=== PATIENT | female | born 1985 | race Caucasian/White ===

== ENCOUNTER → 2016-11-21 | Outpatient (CLI) | payer BC, OTHER ==
--- NOTE | 2016-11-21 10:14 | USB ---
Reason for exam: clinical finding. History: Family history of breast cancer in maternal aunt at age 40 and breast cancer in maternal grandmother at age 50. Indicated problem(s): pain in the left breast. Physical Findings: Nurse Summary: Left breast pain 6 months (nurse kp). US Breast LT Left breast ultrasound includes all four quadrants, the retroareolar region and axilla. Finding demonstrate no cystic or solid lesion seen. These results were verbally communicated with the patient and result sheet given to the patient on 11/21/16. ASSESSMENT: Negative, BI-RAD 1 RECOMMENDATION: Routine screening mammogram of both breasts at age 40. Manage patient on a clinical basis.
== END | disposition home or self-care (01) ==
LOC: RADUSWWP 08:33
PROVIDERS: ATTEND Obstetrics & Gynecology
DX: N64.4 Mastodynia (principal)

== ENCOUNTER 2016-12-30 14:43 | Emergency (ER) | payer BC, OTHER ==
[2016-12-30] MEDS ORDERED: IPRATROPIUM-ALBUTEROL 3 ML NEB INHALATION STA (16:38)
[2016-12-30 17:11] LABS: Basophils % (A) 1 %; CH 30.3; CHCM 33.5; Eosinophils # (A) 0.2 k/uL (0-0.7); Eosinophils % (A) 3 %; HCT 39.6 % (34.0-46.0); HDW 2.32; HGB 13.8 gm/dL (11.4-16.0); Luc # (Auto) 0.15; Luc % (Auto) 3; Lymphocytes # (A) 2.7 k/uL (1.0-4.8); Lymphocytes % (A) 46 %; MCH 31.6 pg (25.0-35.0); MCHC 34.8 g/dL (31.0-37.0); MCV 90.8 fL (80.0-100.0); Mean Platelet Volume 7.6; Monocytes # (A) 0.3 k/uL (0-1.0); Monocytes % (A) 5 %; Neutrophils # (A) 2.5 k/uL (1.3-7.7); Neutrophils % (A) 43 %; RBC 4.36 m/uL (3.80-5.40); RDW 12.9 % (11.5-15.5); WBC 5.8 k/uL (3.8-10.6); WBC (Perox) 5.91
[2016-12-30 17:19] LABS: Appearance,Urine Cloudy (Clear); Bacteria,Urine Rare /hpf; Bilirubin,Urine Negative (Negative); Glucose,Urine (UA) Negative (Negative); Ketones,Urine Negative (Negative); Leukocyte Esterase,Urine Small (Negative); Mucus,Urine Rare /hpf; Nitrite,Urine Negative (Negative); Particle Count 2583; Protein,Urine Trace (Negative); RBC,Urine 1 /hpf (0-5); Specific Gravity,Urine 1.018 (1.001-1.035); Squamous Epithelial Cell,Urine 4 /hpf (0-4); UA Billing (MACRO vs. MICRO) MICRO; WBC,Urine 9 /hpf (0-5)
[2016-12-30 17:20] VITALS: RESP 16
[2016-12-30 17:22] LABS: Anion Gap 8 mmol/L; Blood Urea Nitrogen 11 mg/dL (7-17); Carbon Dioxide 24 mmol/L (22-30); Chloride 107 mmol/L (98-107); Glucose 95 mg/dL (74-99); Non-African American GFR(MDRD) >60 (>60 ml/min/1.73 sqM); Potassium 4.4 mmol/L (3.5-5.1); Sodium 139 mmol/L (137-145)
--- NOTE | 2016-12-30 18:04 | ED ---
General Adult HPI - General Chief complaint: Shortness of Breath Stated complaint: SOB/Allergies Time Seen by Provider: 12/30/16 16:21 Source: patient Mode of arrival: ambulatory Limitations: no limitations - History of Present Illness Initial comments: Alexa is a 31-year-old female with past medical history of asthma which is usually controlled with her MDI inhaler. The patient reports she has never had to come to the emergency department for been hospitalized for her asthma. She reports that over the past 2 months with the warm weather she has been using her rescue inhaler more frequently. She reports that over the weekend she has been using her inhaler 6-7 times a day with minimal relief in her shortness of breath and wheezing. Patient reports that historically she has always had worsening symptoms and hot humid weather, however she has never had symptoms this severe. Patient reports over the weekend her asthma was nearly constant, it improved with slow breathing exercises and holding her hands over head. However she reports that despite using her inhaler she had minimal improvement. She reports she feels as though she has wheezing, she denies any productive cough, fevers, chills, nausea or vomiting. She reports she has been able to eat her normal diet despite her wheezing. She denies any chest pain or cardiac history. She denies any smoking, she was a former tobacco smoker but quit nearly 3 years ago. She is not currently on oral contraceptive pills, has no history of DVT or PE and no family history of DVT or PE. - Related Data Home Medications Medication Instructions Recorded Confirmed Albuterol Inhaler [Ventolin Hfa 1 - 2 puff INHALATION RT-Q6H PRN 04/16/16 Inhaler] Aviane 1 tab PO DAILY 12/30/16 12/30/16 Multivitamins, Thera [Multivitamin 1 tab PO DAILY 12/30/16 12/30/16 (formulary)] Previous Rx's Medication Instructions Recorded Loratadine [Alavert] 10 mg PO DAILY #30 tab.rapdis 12/30/16 predniSONE 10 mg PO DIRECTED #18 tab 12/30/16 Allergies Allergy/AdvReac Type Severity Reaction Status Date / Time No Known Allergies Allergy Verified 12/30/16 16:13 Review of Systems ROS Statement: Those systems with pertinent positive or pertinent negative responses have been documented in the HPI. ROS Other: All systems not noted in ROS Statement are negative. Constitutional: Denies: fever, chills ENT: Denies: throat pain Respiratory: Reports: cough, dyspnea, wheezes. Denies: hemoptysis, stridor Cardiovascular: Reports: palpitations (Palpitations after using inhaler). Denies: chest pain Endocrine: Denies: fatigue Gastrointestinal: Denies: nausea, vomiting Genitourinary: Denies: urgency, dysuria, abnormal menses Musculoskeletal: Denies: back pain Skin: Denies: rash, lesions Neurological: Denies: headache, weakness, numbness, paresthesias Psychiatric: Reports: anxiety. Denies: depression Hematological/Lymphatic: Denies: easy bleeding, easy bruising Past Medical History Past Medical History: Asthma (Never been hospitalized, no ICU stays) History of Any Multi-Drug Resistant Organisms: None Reported Past Surgical History: Section, Uterine Ablation Past Psychological History: No Psychological Hx Reported Smoking Status: Former smoker Past Alcohol Use History: Rare Past Drug Use History: None Reported General Exam Limitations: no limitations General appearance: alert, in no apparent distress Head exam: Present: atraumatic, normocephalic, normal inspection Eye exam: Present: normal appearance, PERRL, EOMI. Absent: scleral icterus, conjunctival injection, periorbital swelling ENT exam: Present: normal exam, mucous membranes moist Neck exam: Present: normal inspection. Absent: tenderness, meningismus, lymphadenopathy Respiratory exam: Present: wheezes (Mild expiratory wheeze). Absent: respiratory distress, rales, rhonchi, stridor, chest wall tenderness, accessory muscle use, prolonged expiratory Cardiovascular Exam: Present: regular rate, normal rhythm, normal heart sounds. Absent: systolic murmur, diastolic murmur, rubs, gallop, clicks GI/Abdominal exam: Present: soft, normal bowel sounds. Absent: distended, tenderness, guarding, rebound, rigid Rectal exam: Present: deferred Extremities exam: Present: normal inspection, full ROM, normal capillary refill. Absent: tenderness, pedal edema, joint swelling, calf tenderness Neurological exam: Present: alert, oriented X3, CN II-XII intact Psychiatric exam: Present: anxious Skin exam: Present: warm, dry, intact, normal color. Absent: rash Course Vital Signs 12/30/16 12/30/16 12/30/16 15:20 16:56 17:05 Temperature 97.6 F Pulse Rate 82 80 80 Respiratory 20 Rate Blood Pressure 121/84 O2 Sat by Pulse 100 Oximetry 12/30/16 17:18 Temperature Pulse Rate 75 Respiratory 16 Rate Blood Pressure 138/66 O2 Sat by Pulse 100 Oximetry - Reevaluation(s) Reevaluation #1: Patient reevaluated after DuoNeb, reports significant improvement after treatment. Patient's , cristina, is at bedside. Patient states she feels better when he is at bedside because he can help her calm the anxiety that is associated with asthma attacks. The long discussion with the patient regarding structured breathing for management of anxiety. 12/30/16 17:58 Reevaluation #2: D-dimer was elevated, these results were discussed with the patient who is agreeable to CT angiography of the chest to evaluate for pulmonary embolism. Patient remains comfortable, heart rate in the 80s, oxygen saturation 100% on room air. 12/30/16 18:13 12/30/16 18:14 Reevaluation #3: She was reevaluated, continues to breathe comfortably. No wheezing. No shortness of breath subjectively. CTA results were discussed with patient and her at bedside, negative for PE. Patient expressed relief. 12/30/16 20:06 Medical Decision Making - Medical Decision Making She was seen and examined, vital signs were reviewed Labs are ordered Duoneb have ordered CBC and BMP were unremarkable had significant symptomatic relief after DuoNeb d-dimer resulted elevated, CTA ordered patient updated CTA without evidence of acute pulmonary wasn't Results were discussed with the patient who continues to feel relief after single DuoNeb Patient discharged home with diagnosis of acute asthma exacerbation, given prescription for loratadine and prednisone. Patient advised to follow-up with primary care physician by the end of the week for reevaluation. Advised her to discuss with her primary care physician whether or not she needs a prescription for nebulizer. Patient expressed understanding. Patient was advised to return to ED for any acute worsening of her wheezing, shortness of breath or any development of any chest pain, lightheadedness, palpitations or any signs or symptoms that she found concerning. Patient and at bedside expressed understanding and agreement with the plan. - Lab Data Result diagrams: 12/30/16 16:50 12/30/16 16:50 Lab Results 07/10/17 07/10/17 07/10/17 Range/Units 16:50 16:50 16:50 WBC 5.8 (3.8-10.6) k/uL RBC 4.36 (3.80-5.40) m/uL Hgb 13.8 (11.4-16.0) gm/dL Hct 39.6 (34.0-46.0) % MCV 90.8 (80.0-100.0) fL MCH 31.6 (25.0-35.0) pg MCHC 34.8 (31.0-37.0) g/dL RDW 12.9 (11.5-15.5) % Plt Count 222 (150-450) k/uL Neutrophils % 43 % Lymphocytes % 46 % Monocytes % 5 % Eosinophils % 3 % Basophils % 1 % Neutrophils # 2.5 (1.3-7.7) k/uL Lymphocytes # 2.7 (1.0-4.8) k/uL Monocytes # 0.3 (0-1.0) k/uL Eosinophils # 0.2 (0-0.7) k/uL Basophils # 0.0 (0-0.2) k/uL D-Dimer (<0.60) mg/L FEU Sodium 139 (137-145) mmol/L Potassium 4.4 (3.5-5.1) mmol/L Chloride 107 (98-107) mmol/L Carbon Dioxide 24 (22-30) mmol/L Anion Gap 8 mmol/L BUN 11 (7-17) mg/dL Creatinine 0.69 (0.52-1.04) mg/dL Est GFR (MDRD) Af Amer >60 (>60 ml/min/1.73 sqM) Est GFR (MDRD) Non-Af >60 (>60 ml/min/1.73 sqM) Glucose 95 (74-99) mg/dL Calcium 9.0 (8.4-10.2) mg/dL Urine Color Urine Appearance (Clear) Urine pH (5.0-8.0) Ur Specific [place] (1.001-1.035) Urine Protein (Negative) Urine Glucose (UA) (Negative) Urine Ketones (Negative) Urine Blood (Negative) Urine Nitrite (Negative) Urine Bilirubin (Negative) Urine Urobilinogen (<2.0) mg/dL Ur Leukocyte Esterase (Negative) Urine RBC (0-5) /hpf Urine WBC (0-5) /hpf Ur Squamous Epith Cells (0-4) /hpf Urine Bacteria (None) /hpf Urine Mucus (None) /hpf Urine HCG, Qual Not Detected (Not Detectd) 12/30/16 12/30/16 Range/Units 16:50 16:50 WBC (3.8-10.6) k/uL RBC (3.80-5.40) m/uL Hgb (11.4-16.0) gm/dL Hct (34.0-46.0) % MCV (80.0-100.0) fL MCH (25.0-35.0) pg MCHC (31.0-37.0) g/dL RDW (11.5-15.5) % Plt Count (150-450) k/uL Neutrophils % % Lymphocytes % % Monocytes % % Eosinophils % % Basophils % % Neutrophils # (1.3-7.7) k/uL Lymphocytes # (1.0-4.8) k/uL Monocytes # (0-1.0) k/uL Eosinophils # (0-0.7) k/uL Basophils # (0-0.2) k/uL D-Dimer 1.03 H (<0.60) mg/L FEU Sodium (137-145) mmol/L Potassium (3.5-5.1) mmol/L Chloride (98-107) mmol/L Carbon Dioxide (22-30) mmol/L Anion Gap mmol/L BUN (7-17) mg/dL Creatinine (0.52-1.04) mg/dL Est GFR (MDRD) Af Amer (>60 ml/min/1.73 sqM) Est GFR (MDRD) Non-Af (>60 ml/min/1.73 sqM) Glucose (74-99) mg/dL Calcium (8.4-10.2) mg/dL Urine Color Yellow Urine Appearance Cloudy H (Clear) Urine pH 8.0 (5.0-8.0) Ur Specific [place] 1.018 (1.001-1.035) Urine Protein Trace H (Negative) Urine Glucose (UA) Negative (Negative) Urine Ketones Negative (Negative) Urine Blood Negative (Negative) Urine Nitrite Negative (Negative) Urine Bilirubin Negative (Negative) Urine Urobilinogen 2.0 (<2.0) mg/dL Ur Leukocyte Esterase Small H (Negative) Urine RBC 1 (0-5) /hpf Urine WBC 9 H (0-5) /hpf Ur Squamous Epith Cells 4 (0-4) /hpf Urine Bacteria Rare H (None) /hpf Urine Mucus Rare H (None) /hpf Urine HCG, Qual (Not Detectd) - Radiology Data Radiology results: report reviewed, image reviewed Disposition Clinical Impression: Asthma with exacerbation Disposition: HOME SELF-CARE Instructions: Asthma (ED) Referrals: Adrienne Judge MD [Primary Care Provider] - 1-2 days
[2016-12-30] MEDS ORDERED: RX INFO: IV CONTRAST WAS GIVEN 1 EACH MISC MISCELLANE PRN (18:08)
--- NOTE | 2016-12-30 18:38 | XR ---
Exam: FILM CXR Single frontal view chest INDICATION: Pain COMPARISON: None FINDINGS: The cardiomediastinal silhouette is within normal limits. Lungs are clear. No pneumothorax. No pleural effusions. Bony elements are within normal limits for age. No acute osseous abnormality. IMPRESSION: No acute cardiopulmonary disease. Lungs are clear. Heart size normal.
--- NOTE | 2016-12-30 19:59 | CT ---
EXAMINATION TYPE: CT angio chest with contrast and with 3-D CTA volumetric renderings DATE OF EXAM: 12/30/2016 7:21 PM COMPARISON: NONE HISTORY: Difficulty breathing and chest pressure. CT DLP: 408.00 mGycm Automated exposure control for dose reduction was used. CONTRAST: CTA scan of the thorax is performed with IV Contrast, patient injected with 60 mL of Omnipaque 350, p ulmonary embolism protocol. . FINDINGS: LUNGS: The lungs are grossly clear, there is no concerning parenchymal mass or nodule identified. T here is no pleural effusion or pneumothorax seen. The tracheobronchial tree is patent. MEDIASTINUM: There is satisfactory enhancement of the pulmonary artery and its branches, there is no CT evidence for pulmonary embolism. There are no greater than 1 cm hilar or mediastinal lymph nodes. No pericardial effusion is seen. OTHER: No additional significant abnormality is seen. IMPRESSION: NEGATIVE FOR PULMONARY EMBOLISM. NO ACUTE PROCESS.
[2016-12-30 20:24] VITALS: BP 131/76; PULSE 89; TEMP 97.8
== END 2016-12-30 20:24 | disposition home or self-care (01) ==
LOC: EC 14:43
DX: J45.901 Unspecified asthma with (acute) exacerbation (principal); R79.1 Abnormal coagulation profile; Z87.891 Personal history of nicotine dependence; Z79.3 Long term (current) use of hormonal contraceptives; Z79.899 Other long term (current) drug therapy
CPT/HCPCS: 36415; 94640; 85379; 80048; 85025; 81001; 81025; 71020; 71275; 99285; Q9967

== ENCOUNTER → 2018-04-24 | Outpatient (CLI) | payer BC, OTHER | END | disposition home or self-care (01) | LOC: LABWHC1 09:33 | PROVIDERS: ATTEND Dermatology MOHS-Micrographic Surgery | DX: L70.0 Acne vulgaris (principal); L65.9 Nonscarring hair loss, unspecified | CPT/HCPCS: 36415; 84132 ==

== ENCOUNTER → 2019-05-07 | Outpatient (CLI) | payer BC, OTHER ==
--- NOTE | 2019-05-07 09:32 | CT ---
EXAMINATION TYPE: CT abdomen w con DATE OF EXAM: 05/07/2019 COMPARISON: None HISTORY: Ventral hernia CT DLP: 217.2 mGycm CONTRAST: CT scan of the abdomen and pelvis is performed without Oral Contrast and with IV Contrast, patient in jected with 100 mL of Isovue 300. FINDINGS: LUNG BASES-: No visible nodule. No infiltrate. LIVER/GB: No calcified gallstones. No space occupying hepatic lesion. Biliary tree is of normal ca liber. PANCREAS: No inflammation. No distinct mass. SPLEEN: No splenic enlargement. No lesion seen. ADRENALS: No nodule. No thickening. KIDNEYS/BLADDER: No hydronephrosis. No nephrolithiasis. No distinct renal mass. Urinary bladder g rossly unremarkable. BOWEL: Normal appendix. Normal bowel caliber. No inflammation. LYMPH NODES: No greater than 1cm abdominal or pelvic lymph nodes are appreciated. AORTA: No significant abnormality. OSSEOUS STRUCTURES: No significant abnormality is seen. OTHER: No significant additional abnormality is seen. IMPRESSION: 1. No distinct abnormality seen. No evidence for ventral hernia at this time.
== END | disposition home or self-care (01) ==
LOC: RADCTMAIN 08:44
PROVIDERS: ATTEND Student in an Organized Health Care Education/Training Program
DX: K43.9 Ventral hernia without obstruction or gangrene (principal)
CPT/HCPCS: 74160

== ENCOUNTER → 2020-06-01 | Outpatient (CLI) | payer BC, OTHER ==
[2020-06-02 02:35] LABS: African American GFR (CKD) 130.1 (60.0-200.0); Non-African American GFR(CKD) 112.3 (60.0-200.0); Potassium 3.9 mmol/L (3.5-5.5)
== END | disposition home or self-care (01) ==
LOC: LABWHC1 14:26
PROVIDERS: ATTEND Nurse Practitioner Family
DX: L65.9 Nonscarring hair loss, unspecified (principal); L81.1 Chloasma
CPT/HCPCS: 36415; 82565; 84132; 84520

== ENCOUNTER → 2022-07-25 | Outpatient (CLI) | payer BC, OTHER ==
--- NOTE | 2022-07-26 06:20 | US ---
EXAMINATION TYPE: US pelvis complete transvag DATE OF EXAM: 07/25/2022 COMPARISON: 09/19/2015 CLINICAL HISTORY: Pelvic pain R10.2. Chronic pelvic pain x 2-3 years, mainly on left side and around the scar TECHNIQUE: . Transabdominal sonographic images of the pelvis were acquired. Transvaginal sonographi c images were medically necessary to better assess the following anatomy: Date of LMP: 07/11/2022 EXAM MEASUREMENTS: Uterus: 8.4 x 2.9 x 5.6 cm Endometrial Stripe: 0.69 cm Right Ovary: 3.9 x 1.8 x 1.8 cm Left Ovary: 2.1 x 1.5 x 1.1 cm 1. Uterus: Anteverted wnl 2. Endometrium: wnl 3. Right Ovary: wnl 4. Left Ovary: wnl 5. Bilateral Adnexa: wnl 6. Posterior cul-de-sac: wnl Heterogeneous anteverted uterus. Endometrial stripe measures within normal limits for secretory phase of menstrual cycle. No free fluid in pelvis. Ovaries symmetric and within normal limits. Peripheral follicles are present bilaterally. IMPRESSION: Unremarkable study.
== END | disposition home or self-care (01) ==
LOC: RADUSWWP 16:10
PROVIDERS: ATTEND Obstetrics & Gynecology
DX: R10.2 Pelvic and perineal pain (principal)
CPT/HCPCS: 76830; 76856